=== PATIENT | male | born 1940 | race Caucasian/White ===

== ENCOUNTER 2017-03-06 15:00 | Inpatient (IN) | payer OTHER ==
[~2017-03-06] VITALS: Ht 167.6 cm; Wt 94.0 kg
[2017-03-06 16:21] LABS: BASOPHILS % (AUTO) 0.3 % (0.0-5.0); HEMATOCRIT 37.7 % (42-54); LYMPHOCYTES % (AUTO) 21.7 % (21.0-51.0); MEAN CORPUSCULAR HEMOGLOBIN 34.1 pg (27.0-33.0); MEAN CORPUSCULAR HGB CONC 34.8 g/dL (32.0-36.0); MEAN CORPUSCULAR VOLUME 97.9 fL (79-99); MONOCYTES % (AUTO) 7.6 % (3.0-13.0); NEUTROPHILS % (AUTO) 67.4 % (40.0-77.0); PLATELET COUNT (AUTO) 252 K/uL (130-400); RED BLOOD CELL COUNT(AUTO) 3.85 MIL/uL (4.50-6.20); RED CELL DISTRIBUTION WIDTH 12.4 % (11.0-15.5); WHITE BLOOD COUNT (AUTO) 8.5 K/uL (4.8-10.8)
[2017-03-06 16:35] LABS: INR 0.92 (0.85-1.15); PARTIAL THROMBOPLASTIN TIME 23.9 SEC (26.3-35.5); PROTHROMBIN TIME 9.7 SEC (9.6-11.6)
[2017-03-06 16:38] VITALS: BP 143/76
[2017-03-06 16:42] LABS: CREATININE 1.4 mg/dL (0.5-1.5); POTASSIUM 4.5 mmol/L (3.5-5.1)
[2017-03-06 16:42] LABS: APPEARANCE,URINE Clear (CLEAR); BILIRUBIN,URINE Negative (NEGATIVE); COLOR,URINE Yellow (YELLOW); GLUCOSE, URINE (UA) Negative (NEGATIVE); KETONES,URINE Negative (NEGATIVE); LEUKOCYTE ESTERASE ,URINE Negative (NEGATIVE); NITRATE,URINE Negative (NEGATIVE); OCCULT BLOOD,URINE Negative (NEGATIVE); PROTEIN,URINE Negative (NEGATIVE); UROBILINOGEN,URINE 0.2 mg/dL (0.2-1.0)
[2017-03-06] MEDS ORDERED: ATOR-2 PO (17:08)
[2017-03-06] MEDS ORDERED: METO25TA6 PO (17:08)
[2017-03-06] MEDS ORDERED: OMEP20TA25 PO (17:08)
[2017-03-06] MEDS ORDERED: FOLI1TAB61 PO (17:08)
[2017-03-06] MEDS ORDERED: ASPI-555 PO (17:08)
[2017-03-06] MEDS ORDERED: CLOP75TA14 PO (17:08)
[2017-03-09] VITALS (24 sets, daily range): BP systolic 137–168; BP diastolic 71–93
[2017-03-09] MEDS: CEFAZOLIN SODIUM 1 GM VIAL IVP SCH ×3 (06:00→15:47)
[2017-03-09] MEDS ORDERED: CEFAZOLIN SODIUM 1 GM VIAL ONE ×2 (06:56→11:17)
[2017-03-09] MEDS ORDERED: BUPIVACAINE/EPI/PF 0.25% 30ML VIAL IJ ONE ×2 (06:56→11:17)
[2017-03-09] MEDS ORDERED: TRANEXAMIC ACID 1000MG/10ML IV ONE ×2 (06:56→11:18)
[2017-03-09] MEDS ORDERED: LACTATED RINGERS 1000ML 1,000 ML IV ONE (07:06)
[2017-03-09] MEDS ORDERED: LIDOCAINE PF 2% 5ML ABBOJECT ONE ×2 (07:19→07:26)
[2017-03-09] MEDS ORDERED: MIDAZOLAM HCL 1 MG/ML 2ML VIAL ONE (07:19)
[2017-03-09] MEDS ORDERED: PROPOFOL 10 MG/ML 20ML VIAL IV ONE (07:19)
[2017-03-09] MEDS ORDERED: DEXAMETHASONE SOD PHOSPHATE 10MG/ML 1ML VIAL ONE (07:19)
[2017-03-09] MEDS ORDERED: ONDANSETRON HCL 4 MG/2 ML VIAL ONE (07:19)
[2017-03-09] MEDS ORDERED: GLYCOPYRROLATE 0.2 MG/ML 5 ML VIAL ONE (07:19)
[2017-03-09] MEDS ORDERED: FENTANYL CITRATE PF 50 MCG/1 ML 2ML VIAL ONE ×4 (07:20→10:20)
[2017-03-09] MEDS ORDERED: ROCURONIUM BROMIDE 10MG/1ML 5ML VL ONE (07:25)
[2017-03-09] MEDS ORDERED: ROPIVACAINE 0.5% 5MG/ML 30ML IJ ONE (07:32)
[2017-03-09] MEDS ORDERED: CALDOLOR 800MG+NS 250ML 250 ML IV ONE (08:34)
[2017-03-09] MEDS ORDERED: CEFAZOLIN SODIUM 1 GM VIAL IRRIG ONE (09:04)
[2017-03-09] MEDS ORDERED: POTASSIUM CHLORIDE 10% ELIXIR 20 MEQ/15 ML UDCUP PO PRN (10:15)
[2017-03-09] MEDS ORDERED: LIDOCAINE HCL-MPF 1% 2ML VIAL IVP PRN (10:15)
[2017-03-09] MEDS ORDERED: DIPHENHYDRAMINE HCL 25 MG CAPSULE PO PRN (10:15)
[2017-03-09] MEDS: ACETAMINOPHEN 325 MG TAB PO SCH ×4 (10:15→21:51)
[2017-03-09] MEDS ORDERED: OXYCODONE HCL 5 MG TAB PO PRN (10:15)
[2017-03-09] MEDS ORDERED: DiphenhydrAMINE HCL 50 MG/ML VIAL IVP PRN (10:15)
[2017-03-09] MEDS ORDERED: TRAMADOL HCL 50 MG TABLET PO PRN (10:15)
[2017-03-09] MEDS ORDERED: FERROUS FUMARATE 324 MG TABLET PO PRN (10:15)
[2017-03-09] MEDS ORDERED: PROMETHAZINE HCL 25 MG/ML 1ML AMPULE IM PRN (10:15)
[2017-03-09] MEDS ORDERED: POTASSIUM CHLORIDE 20MEQ/100ML 100 ML IV PRN (10:15)
[2017-03-09] MEDS ORDERED: KETOROLAC TROMETHAMINE 15MG/ML IV PRN (10:15)
[2017-03-09] MEDS: PSYLLIUM SEED 1 EACH PACKET PO SCH (12:38)
[2017-03-09] MEDS: SODIUM CHLORIDE 0.9% 1000ML 1,000 ML IV SCH (12:38)
[2017-03-09] MEDS: OXYCODONE HCL 5 MG TAB PO PRN (14:37)
[2017-03-09] MEDS ORDERED: WATER FOR INJECTION,STERILE 20 ML VIAL IJ SCH (15:15)
[2017-03-09] MEDS ORDERED: CEFAZOLIN 2GM / 50 ML 50 ML IV SCH (15:15)
[2017-03-09] MEDS: CELECOXIB 200 MG CAP PO SCH (21:48)
[2017-03-09] MEDS: ATORVASTATIN CALCIUM 40 MG TABLET PO SCH (21:48)
[2017-03-09] MEDS: PREGABALIN 25 MG CAP PO SCH (21:49)
[2017-03-09] MEDS: METOPROLOL TARTRATE 25 MG TAB PO SCH (21:49)
[2017-03-10] VITALS: BP 121/72
[2017-03-10] MEDS: CEFAZOLIN SODIUM 1 GM VIAL IVP SCH
[2017-03-10] MEDS: OXYCODONE HCL 5 MG TAB PO PRN ×3 (03:11→15:31)
[2017-03-10 04:00] VITALS: BP 131/84
[2017-03-10 04:44] LABS: HEMATOCRIT 29.9 % (42-54); MEAN CORPUSCULAR HEMOGLOBIN 34.7 pg (27.0-33.0); MEAN CORPUSCULAR HGB CONC 35.9 g/dL (32.0-36.0); MEAN CORPUSCULAR VOLUME 96.9 fL (79-99); PLATELET COUNT (AUTO) 206 K/uL (130-400); RED BLOOD CELL COUNT(AUTO) 3.09 MIL/uL (4.50-6.20); RED CELL DISTRIBUTION WIDTH 12.2 % (11.0-15.5); WHITE BLOOD COUNT (AUTO) 13.8 K/uL (4.8-10.8)
[2017-03-10 04:50] LABS: CREATININE 1.3 mg/dL (0.5-1.5)
[2017-03-10] MEDS: ACETAMINOPHEN 325 MG TAB PO SCH ×4 (04:59→21:05)
[2017-03-10] MEDS: CALCIUM CARBONATE 500 MG TABLET PO PRN ×2 (05:41→21:01)
[2017-03-10] MEDS: SODIUM CHLORIDE 0.9% 1000ML 1,000 ML IV SCH ×2 (06:13)
[2017-03-10 07:55] VITALS: BP 128/79
[2017-03-10] MEDS ORDERED: ASPIRIN 81 MG EC TAB PO SCH (09:00)
[2017-03-10] MEDS: POLYETHYLENE GLYCOL 3350 17 GM POWD.PACK PO SCH (09:29)
[2017-03-10] MEDS: PREGABALIN 25 MG CAP PO SCH ×2 (09:30→21:01)
[2017-03-10] MEDS: CELECOXIB 200 MG CAP PO SCH ×2 (09:32→21:01)
[2017-03-10] MEDS: PANTOPRAZOLE SODIUM 40 MG TABLET.DR PO SCH (09:32)
[2017-03-10] MEDS: CLOPIDOGREL BISULFATE 75 MG TAB PO SCH (09:32)
[2017-03-10] MEDS: METOPROLOL TARTRATE 25 MG TAB PO SCH ×2 (09:32→21:01)
[2017-03-10] MEDS: VITAMIN B COMPLEX 1 CAPSULE PO SCH (09:32)
[2017-03-10] MEDS: TAMSULOSIN HCL 0.4 MG CAP.ER.24H PO SCH (09:32)
[2017-03-10 11:40] VITALS: BP 132/74
[2017-03-10] MEDS: PSYLLIUM SEED 1 EACH PACKET PO SCH (11:59)
[2017-03-10] MEDS ORDERED: ASPIRIN 325 MG TABLET PO ONE (12:38)
[2017-03-10] MEDS: ASPIRIN 325 MG TABLET PO SCH (12:43)
[2017-03-10] MEDS ORDERED: ASPIRIN 325 MG TABLET PO SCH (12:45)
[2017-03-10 16:49] VITALS: BP 142/80
[2017-03-10 20:00] VITALS: BP 137/75
[2017-03-10] MEDS: ATORVASTATIN CALCIUM 40 MG TABLET PO SCH (21:01)
[2017-03-10] MEDS: TEMAZEPAM 15 MG CAPSULE PO PRN (21:01)
[2017-03-11] VITALS (7 sets, daily range): BP systolic 126–158; BP diastolic 65–88
[2017-03-11 04:38] LABS: HEMATOCRIT 27.2 % (42-54); MEAN CORPUSCULAR HEMOGLOBIN 34.2 pg (27.0-33.0); MEAN CORPUSCULAR HGB CONC 35.3 g/dL (32.0-36.0); MEAN CORPUSCULAR VOLUME 96.8 fL (79-99); PLATELET COUNT (AUTO) 178 K/uL (130-400); RED BLOOD CELL COUNT(AUTO) 2.81 MIL/uL (4.50-6.20); RED CELL DISTRIBUTION WIDTH 12.1 % (11.0-15.5); WHITE BLOOD COUNT (AUTO) 9.2 K/uL (4.8-10.8)
[2017-03-11] MEDS: ACETAMINOPHEN 325 MG TAB PO SCH ×4 (04:47→21:25)
[2017-03-11] MEDS: PANTOPRAZOLE SODIUM 40 MG TABLET.DR PO SCH (04:48)
[2017-03-11 04:49] LABS: CREATININE 1.3 mg/dL (0.5-1.5); POTASSIUM 3.5 mmol/L (3.5-5.1)
[2017-03-11] MEDS: CELECOXIB 200 MG CAP PO SCH ×2 (08:54→21:14)
[2017-03-11] MEDS: PREGABALIN 25 MG CAP PO SCH ×2 (08:54→21:22)
[2017-03-11] MEDS: ASPIRIN 325 MG TABLET PO SCH (08:54)
[2017-03-11] MEDS: CLOPIDOGREL BISULFATE 75 MG TAB PO SCH (08:54)
[2017-03-11] MEDS: VITAMIN B COMPLEX 1 CAPSULE PO SCH (08:55)
[2017-03-11] MEDS: POLYETHYLENE GLYCOL 3350 17 GM POWD.PACK PO SCH (08:55)
[2017-03-11] MEDS: TAMSULOSIN HCL 0.4 MG CAP.ER.24H PO SCH (08:55)
[2017-03-11] MEDS: METOPROLOL TARTRATE 25 MG TAB PO SCH ×2 (08:55→21:14)
[2017-03-11] MEDS: POTASSIUM CHLORIDE 20 MEQ ERTAB PO PRN ×2 (08:55→08:56)
[2017-03-11] MEDS: OXYCODONE HCL 5 MG TAB PO PRN ×3 (09:00→18:20)
[2017-03-11] MEDS ORDERED: HYDR-309 PO (09:53)
[2017-03-11] MEDS ORDERED: BISACODYL 5 MG TABLET.DR PO PRN ×2 (10:15→12:30)
[2017-03-11] MEDS ORDERED: BISACODYL 10 MG SUPP.RECT RC PRN (12:27)
[2017-03-11] MEDS: PSYLLIUM SEED 1 EACH PACKET PO SCH (12:53)
[2017-03-11] MEDS: TEMAZEPAM 15 MG CAPSULE PO PRN (21:14)
[2017-03-11] MEDS: ATORVASTATIN CALCIUM 40 MG TABLET PO SCH (21:14)
[2017-03-12] MEDS: PANTOPRAZOLE SODIUM 40 MG TABLET.DR PO SCH (03:55)
[2017-03-12] MEDS: ACETAMINOPHEN 325 MG TAB PO SCH ×3 (03:56→15:46)
[2017-03-12 04:00] VITALS: BP 129/75
[2017-03-12 05:06] LABS: HEMATOCRIT 25.7 % (42-54); MEAN CORPUSCULAR HEMOGLOBIN 36.7 pg (27.0-33.0); MEAN CORPUSCULAR HGB CONC 37.6 g/dL (32.0-36.0); MEAN CORPUSCULAR VOLUME 97.5 fL (79-99); PLATELET COUNT (AUTO) 186 K/uL (130-400); RED BLOOD CELL COUNT(AUTO) 2.63 MIL/uL (4.50-6.20); RED CELL DISTRIBUTION WIDTH 12.3 % (11.0-15.5); WHITE BLOOD COUNT (AUTO) 9.8 K/uL (4.8-10.8)
[2017-03-12 05:18] LABS: CREATININE 1.4 mg/dL (0.5-1.5); POTASSIUM 3.7 mmol/L (3.5-5.1)
[2017-03-12 07:31] VITALS: BP 138/80
[2017-03-12] MEDS: PREGABALIN 25 MG CAP PO SCH (10:26)
[2017-03-12] MEDS: POLYETHYLENE GLYCOL 3350 17 GM POWD.PACK PO SCH (10:26)
[2017-03-12] MEDS: VITAMIN B COMPLEX 1 CAPSULE PO SCH (10:26)
[2017-03-12] MEDS: OXYCODONE HCL 5 MG TAB PO PRN ×2 (10:27→15:47)
[2017-03-12] MEDS: CLOPIDOGREL BISULFATE 75 MG TAB PO SCH (10:27)
[2017-03-12] MEDS: CELECOXIB 200 MG CAP PO SCH (10:27)
[2017-03-12] MEDS: METOPROLOL TARTRATE 25 MG TAB PO SCH (10:27)
[2017-03-12] MEDS: ASPIRIN 325 MG TABLET PO SCH (10:31)
[2017-03-12] MEDS: TAMSULOSIN HCL 0.4 MG CAP.ER.24H PO SCH (10:32)
[2017-03-12 11:30] VITALS: BP 145/84
[2017-03-12] MEDS: PSYLLIUM SEED 1 EACH PACKET PO SCH (12:05)
[2017-03-12 16:26] VITALS: BP 133/78
[2017-06-12] MEDS ORDERED: CLOP75TA14 PO (10:30)
[2017-06-12] MEDS ORDERED: METO50TA18 PO (10:30)
[2017-06-12] MEDS ORDERED: FOLI0.8T41 PO (10:30)
== END 2017-03-12 18:35 | disposition home health service (06) | DRG 470 ==
LOC: DAHIP 03-09 06:16 → 4AH 03-09 11:46
PROVIDERS: ADMIT Orthopaedic Surgery; ATTEND Orthopaedic Surgery
PROC: 0SRD0J9 Replacement of Left Knee Joint with Synthetic Substitute, Cemented, Open Approach (ICD-10-PCS; principal; 2017-03-09 08:25)
DX: M17.12 Unilateral primary osteoarthritis, left knee (principal); E78.5 Hyperlipidemia, unspecified; I10 Essential (primary) hypertension; G89.29 Other chronic pain; Z90.49 Acquired absence of other specified parts of digestive tract; Z98.42 Cataract extraction status, left eye; Z98.41 Cataract extraction status, right eye; Z80.3 Family history of malignant neoplasm of breast; Z80.1 Family history of malignant neoplasm of trachea, bronchus and lung
CPT/HCPCS: 36415; 80048; 81003; 85025; 85027; 85610; 85730; 88305; 88311; A4218; C1713; J0690; J1100; J1741; J2001; J2250; J2405; J2704; J2795; J3010; J3490; J7030; J7120

== ENCOUNTER → 2017-05-25 | Outpatient (CLI) | payer OTHER ==
[~2017-05-25] VITALS: Ht 170.2 cm; Wt 91.6 kg
[~2017-05-25] MED LIST: ASPI-1012 PO; ASPI-555 PO; ATOR-2 PO; CLOP75TA14 PO; FISH1CAP49 PO; FOLI0.8T41 PO; FOLI1TAB61 PO; HYDR-309 PO; METO25TA6 PO; METO50TA18 PO; OMEP20CA10 PO; OMEP20TA25 PO; REGADENOSON 0.4 MG/5 ML PF SYG IVP SCH; RENAL MULTIVITAMIN PO
== END | disposition home or self-care (01) ==
LOC: SHCH 11:04
PROVIDERS: ATTEND Internal Medicine Cardiovascular Disease
DX: I20.9 Angina pectoris, unspecified (principal)
CPT/HCPCS: 78452; 93017; 96374; A9500 ×2; J2785

== ENCOUNTER 2017-05-29 11:00 | Inpatient (IN) | payer OTHER ==
[~2017-05-29] VITALS: Ht 168.9 cm; Wt 89.5 kg
[~2017-05-29 11:00] MED LIST changes: -ASPI-1012 PO; -FISH1CAP49 PO; -FOLI0.8T41 PO; -FOLI1TAB61 PO; -HYDR-309 PO; -METO25TA6 PO; -METO50TA18 PO; -OMEP20CA10 PO; -OMEP20TA25 PO; -REGADENOSON 0.4 MG/5 ML PF SYG IVP SCH; -RENAL MULTIVITAMIN PO
[2017-06-12] MEDS ORDERED: OMEP20CA10 PO (10:30)
[2017-06-12] MEDS ORDERED: FISH1CAP49 PO (10:30)
[2017-06-23 15:39] VITALS: BP 131/65
[2017-06-23 15:54] LABS: BASOPHILS % (AUTO) 0.7 % (0.0-5.0); EOSINOPHILS % (AUTO) 4.9 % (0.0-8.0); HEMATOCRIT 36.8 % (42-54); LYMPHOCYTES % (AUTO) 30.3 % (21.0-51.0); MEAN CORPUSCULAR HEMOGLOBIN 32.6 pg (27.0-33.0); MEAN CORPUSCULAR HGB CONC 34.5 g/dL (32.0-36.0); MEAN CORPUSCULAR VOLUME 94.6 fL (79-99); MONOCYTES % (AUTO) 11.6 % (3.0-13.0); NEUTROPHILS % (AUTO) 52.5 % (40.0-77.0); PLATELET COUNT (AUTO) 260 K/uL (130-400); RED BLOOD CELL COUNT(AUTO) 3.89 MIL/uL (4.50-6.20); RED CELL DISTRIBUTION WIDTH 13.2 % (11.0-15.5); WHITE BLOOD COUNT (AUTO) 6.4 K/uL (4.8-10.8)
[2017-06-23] MEDS ORDERED: RENAL MULTIVITAMIN PO (16:29)
[2017-06-23] MEDS ORDERED: METO50TA18 PO (16:32)
[2017-06-24] VITALS (25 sets, daily range): BP systolic 108–175; BP diastolic 60–94
[2017-06-24] MEDS: CEFAZOLIN SODIUM 1 GM VIAL IVP SCH ×3 (08:00→17:38)
[2017-06-24] MEDS ORDERED: TRANEXAMIC ACID 1000MG/10ML IV ONE (08:07)
[2017-06-24] MEDS ORDERED: LACTATED RINGERS 1000ML 1,000 ML IV ONE (08:07)
[2017-06-24] MEDS ORDERED: CEFAZOLIN SODIUM 1 GM VIAL ONE (08:07)
[2017-06-24] MEDS ORDERED: ACETAMINOPHEN EXTRA STRENGTH 500 MG TABLET ONE (08:26)
[2017-06-24] MEDS ORDERED: OXYCODONE HCL 10 MG TAB.SR.12H PO ONE (08:27)
[2017-06-24] MEDS ORDERED: KETOROLAC TROMETHAMINE 15MG/ML ONE (08:27)
[2017-06-24] MEDS ORDERED: CELECOXIB 200 MG CAP ONE (08:27)
[2017-06-24] MEDS: BUPIVACAINE/EPI/PF 0.25% 30ML VIAL IJ SCH ×2 (08:30→12:15)
[2017-06-24] MEDS ORDERED: LIDOCAINE PF 2% 5ML ABBOJECT ONE (09:08)
[2017-06-24] MEDS ORDERED: ONDANSETRON HCL 4 MG/2 ML VIAL ONE (09:08)
[2017-06-24] MEDS ORDERED: NEOSTIGMINE 5MG/5ML SYR IV ONE (09:08)
[2017-06-24] MEDS ORDERED: DEXAMETHASONE SOD PHOSPHATE 10MG/ML 1ML VIAL ONE (09:08)
[2017-06-24] MEDS ORDERED: GLYCOPYRROLATE 0.2 MG/ML 5 ML VIAL ONE (09:08)
[2017-06-24] MEDS ORDERED: FENTANYL CITRATE PF 50 MCG/1 ML 2ML VIAL ONE ×2 (09:09→10:48)
[2017-06-24] MEDS ORDERED: PROPOFOL 10 MG/ML 20ML VIAL IV ONE (09:09)
[2017-06-24] MEDS ORDERED: MIDAZOLAM HCL 1 MG/ML 2ML VIAL ONE (09:09)
[2017-06-24] MEDS ORDERED: VECURONIUM BROMIDE 10 MG ML IV ONE (09:15)
[2017-06-24] MEDS ORDERED: ROPIVACAINE 0.5% 5MG/ML 30ML IJ ONE (09:15)
[2017-06-24] MEDS ORDERED: EPHEDRINE SULFATE 50 MG/ML AMPULE ONE (10:41)
[2017-06-24] MEDS ORDERED: METOPROLOL TARTRATE 1 MG/ML 5ML VIAL IV ONE (11:13)
[2017-06-24] MEDS ORDERED: POTASSIUM CHLORIDE 10% ELIXIR 20 MEQ/15 ML UDCUP PO PRN (12:30)
[2017-06-24] MEDS: ACETAMINOPHEN EXTRA STRENGTH 500 MG TABLET PO SCH ×2 (12:30→19:31)
[2017-06-24] MEDS ORDERED: POTASSIUM CHLORIDE 20 MEQ ERTAB PO PRN (12:30)
[2017-06-24] MEDS ORDERED: ONDANSETRON HCL 4 MG/2 ML VIAL IVP PRN (12:30)
[2017-06-24] MEDS ORDERED: TRAMADOL HCL 50 MG TABLET PO PRN (12:30)
[2017-06-24] MEDS ORDERED: DiphenhydrAMINE HCL 50 MG/ML VIAL IVP PRN (12:30)
[2017-06-24] MEDS ORDERED: CALCIUM CARBONATE 500 MG TABLET PO PRN (12:30)
[2017-06-24] MEDS ORDERED: LIDOCAINE HCL-MPF 1% 2ML VIAL IVP PRN (12:30)
[2017-06-24] MEDS ORDERED: TEMAZEPAM 15 MG CAPSULE PO PRN (12:30)
[2017-06-24] MEDS ORDERED: FERROUS FUMARATE 324 MG TABLET PO PRN (12:30)
[2017-06-24] MEDS ORDERED: POTASSIUM CHLORIDE 20MEQ/100ML 100 ML IV PRN (12:30)
[2017-06-24] MEDS ORDERED: MEPERIDINE-PF 25 MG/ML SYG ONE ×2 (13:21→13:30)
[2017-06-24] MEDS: SODIUM CHLORIDE 0.9% 1000ML 1,000 ML IV SCH ×2 (15:17→22:16)
[2017-06-24] MEDS: KETOROLAC TROMETHAMINE 15MG/ML IV PRN ×2 (15:18→23:45)
[2017-06-24] MEDS ORDERED: CEFAZOLIN 2GM / 50 ML 50 ML IV SCH (17:30)
[2017-06-24] MEDS: OXYCODONE HCL 5 MG TAB PO PRN (19:31)
[2017-06-24] MEDS: CELECOXIB 200 MG CAP PO SCH (20:42)
[2017-06-24] MEDS: ASPIRIN 325 MG TABLET PO SCH (20:42)
[2017-06-24] MEDS: ATORVASTATIN CALCIUM 40 MG TABLET PO SCH (20:42)
[2017-06-24] MEDS: METOPROLOL TARTRATE 50 MG TAB PO SCH (20:42)
[2017-06-24] MEDS: PREGABALIN 25 MG CAP PO SCH (20:42)
[2017-06-24] MEDS: FAMOTIDINE 20MG TAB 20 MG TAB PO SCH (20:43)
[2017-06-25] VITALS: BP 148/86
[2017-06-25] MEDS: CEFAZOLIN SODIUM 1 GM VIAL IVP SCH (00:50)
[2017-06-25] MEDS: OXYCODONE HCL 5 MG TAB PO PRN ×5 (01:21→18:32)
[2017-06-25] MEDS: ACETAMINOPHEN EXTRA STRENGTH 500 MG TABLET PO SCH ×3 (03:50→19:46)
[2017-06-25 04:00] VITALS: BP 144/77
[2017-06-25 05:10] LABS: HEMATOCRIT 29.4 % (42-54); MEAN CORPUSCULAR HEMOGLOBIN 32.3 pg (27.0-33.0); MEAN CORPUSCULAR HGB CONC 34.2 g/dL (32.0-36.0); MEAN CORPUSCULAR VOLUME 94.5 fL (79-99); PLATELET COUNT (AUTO) 226 K/uL (130-400); RED BLOOD CELL COUNT(AUTO) 3.11 MIL/uL (4.50-6.20); RED CELL DISTRIBUTION WIDTH 13.4 % (11.0-15.5); WHITE BLOOD COUNT (AUTO) 12.7 K/uL (4.8-10.8)
[2017-06-25 05:21] LABS: CREATININE 1.5 mg/dL (0.5-1.5); POTASSIUM 4.6 mmol/L (3.5-5.1)
[2017-06-25 07:35] VITALS: BP 144/75
[2017-06-25] MEDS: FAMOTIDINE 20MG TAB 20 MG TAB PO SCH ×2 (08:13→19:46)
[2017-06-25] MEDS: POLYETHYLENE GLYCOL 3350 17 GM POWD.PACK PO SCH (08:13)
[2017-06-25] MEDS: CLOPIDOGREL BISULFATE 75 MG TAB PO SCH (08:13)
[2017-06-25] MEDS: METOPROLOL TARTRATE 50 MG TAB PO SCH ×2 (08:13→19:46)
[2017-06-25] MEDS: ASPIRIN 325 MG TABLET PO SCH ×2 (08:13→19:45)
[2017-06-25] MEDS: FOLIC ACID/VITAMIN B COMP W-C 1 MG CAPSULE PO SCH (08:13)
[2017-06-25] MEDS: TAMSULOSIN HCL 0.4 MG CAP.ER.24H PO SCH (08:13)
[2017-06-25] MEDS: FISH OIL 1000 MG/CAP PO SCH (08:13)
[2017-06-25] MEDS: PANTOPRAZOLE SODIUM 40 MG TABLET.DR PO SCH (08:13)
[2017-06-25] MEDS: CELECOXIB 200 MG CAP PO SCH ×2 (08:14→19:46)
[2017-06-25] MEDS: PREGABALIN 25 MG CAP PO SCH ×2 (08:14→19:45)
[2017-06-25] MEDS: SODIUM CHLORIDE 0.9% 1000ML 1,000 ML IV SCH (08:26)
[2017-06-25 11:46] VITALS: BP 116/57
[2017-06-25 16:00] VITALS: BP 116/58
[2017-06-25] MEDS: ATORVASTATIN CALCIUM 40 MG TABLET PO SCH (19:46)
[2017-06-25 19:59] VITALS: BP 137/67
[2017-06-26 00:06] VITALS: BP 127/63
[2017-06-26] MEDS: ACETAMINOPHEN EXTRA STRENGTH 500 MG TABLET PO SCH ×2 (04:00→12:02)
[2017-06-26 04:07] VITALS: BP 122/64
[2017-06-26 07:37] VITALS: BP 124/69
[2017-06-26] MEDS: TAMSULOSIN HCL 0.4 MG CAP.ER.24H PO SCH (08:12)
[2017-06-26] MEDS: METOPROLOL TARTRATE 50 MG TAB PO SCH (08:12)
[2017-06-26] MEDS: OXYCODONE HCL 5 MG TAB PO PRN ×3 (08:12→12:23)
[2017-06-26] MEDS: ASPIRIN 325 MG TABLET PO SCH (08:12)
[2017-06-26] MEDS: FOLIC ACID/VITAMIN B COMP W-C 1 MG CAPSULE PO SCH (08:13)
[2017-06-26] MEDS: CLOPIDOGREL BISULFATE 75 MG TAB PO SCH (08:13)
[2017-06-26] MEDS: FAMOTIDINE 20MG TAB 20 MG TAB PO SCH (08:13)
[2017-06-26] MEDS: POLYETHYLENE GLYCOL 3350 17 GM POWD.PACK PO SCH (08:13)
[2017-06-26] MEDS: PREGABALIN 25 MG CAP PO SCH (08:13)
[2017-06-26] MEDS: CELECOXIB 200 MG CAP PO SCH (08:13)
[2017-06-26] MEDS: PANTOPRAZOLE SODIUM 40 MG TABLET.DR PO SCH (08:13)
[2017-06-26] MEDS: FISH OIL 1000 MG/CAP PO SCH (08:13)
[2017-06-26 11:16] VITALS: BP 141/75
[2017-06-26] MEDS ORDERED: BISACODYL 10 MG SUPP.RECT RC ONE (15:27)
[2017-06-26] MEDS ORDERED: ASPI-1012 PO (15:34)
[2017-06-26] MEDS ORDERED: HYDR-309 PO (15:34)
[2017-06-27] MEDS ORDERED: BISACODYL 10 MG SUPP.RECT RC PRN (12:30)
== END 2017-06-26 17:00 | disposition home health service (06) | DRG 470 ==
LOC: EDSTATUS 14:45 → DAHIP 06-24 07:15 → 4AH 06-24 13:46
PROVIDERS: ADMIT Orthopaedic Surgery; ATTEND Orthopaedic Surgery
PROC: 0SRC0J9 Replacement of Right Knee Joint with Synthetic Substitute, Cemented, Open Approach (ICD-10-PCS; principal; 2017-06-24 10:08)
DX: M17.11 Unilateral primary osteoarthritis, right knee (principal); E78.5 Hyperlipidemia, unspecified; I10 Essential (primary) hypertension; I25.10 Atherosclerotic heart disease of native coronary artery without angina pectoris; K21.9 Gastro-esophageal reflux disease without esophagitis; Z96.652 Presence of left artificial knee joint; Z98.42 Cataract extraction status, left eye; Z98.41 Cataract extraction status, right eye
CPT/HCPCS: 36415; 80048; 85025; 85027; 88305; 88311; 96374; A4218; A4344; J0690; J1100; J1885; J2001; J2175; J2250; J2405; J2704; J2710; J2795; J3010; J3490; J7030; J7120

== ENCOUNTER 2017-06-16 08:52 | Day surgery (SDC) | payer OTHER ==
[2017-06-12 10:02] VITALS: BP 138/70
[2017-06-12 10:12] LABS: APPEARANCE,URINE Clear (CLEAR); BILIRUBIN,URINE Negative (NEGATIVE); COLOR,URINE Yellow (YELLOW); GLUCOSE, URINE (UA) Negative (NEGATIVE); KETONES,URINE Negative (NEGATIVE); LEUKOCYTE ESTERASE ,URINE Negative (NEGATIVE); NITRATE,URINE Negative (NEGATIVE); OCCULT BLOOD,URINE Negative (NEGATIVE); PROTEIN,URINE Negative (NEGATIVE); UROBILINOGEN,URINE 0.2 mg/dL (0.2-1.0)
[2017-06-12 10:12] LABS: BASOPHILS % (AUTO) 0.4 % (0.0-5.0); EOSINOPHILS % (AUTO) 4.2 % (0.0-8.0); HEMATOCRIT 35.4 % (42-54); LYMPHOCYTES % (AUTO) 31.8 % (21.0-51.0); MEAN CORPUSCULAR HEMOGLOBIN 32.1 pg (27.0-33.0); MEAN CORPUSCULAR HGB CONC 34.1 g/dL (32.0-36.0); MONOCYTES % (AUTO) 7.6 % (3.0-13.0); PLATELET COUNT (AUTO) 285 K/uL (130-400); RED BLOOD CELL COUNT(AUTO) 3.77 MIL/uL (4.50-6.20); RED CELL DISTRIBUTION WIDTH 12.9 % (11.0-15.5); WHITE BLOOD COUNT (AUTO) 4.8 K/uL (4.8-10.8)
[2017-06-12 10:23] LABS: CREATININE 1.2 mg/dL (0.5-1.5); POTASSIUM 4.4 mmol/L (3.5-5.1)
[2017-06-12 10:44] LABS: INR 0.94 (0.85-1.15); PROTHROMBIN TIME 9.9 SEC (9.6-11.6)
[2017-06-16] VITALS (10 sets, daily range): BP systolic 131–163; BP diastolic 64–82
[~2017-06-16] VITALS: Ht 170.2 cm; Wt 91.9 kg
[~2017-06-16 08:52] MED LIST changes: +FISH1CAP49 PO; +FOLI0.8T41 PO; +METO50TA18 PO; +OMEP20CA10 PO; +SODIUM CHLORIDE 0.9% 500ML 500 ML IV SCH
[2017-06-16] MEDS ORDERED: SODIUM CHLORIDE 0.9% 1000ML 1,000 ML IV ONE (10:00)
[2017-06-16] MEDS ORDERED: MIDAZOLAM HCL 1 MG/ML 2ML VIAL ONE (10:34)
[2017-06-16] MEDS ORDERED: NITROGLYCERIN 5 MG/ML 10 ML VIAL IV ONE (10:34)
[2017-06-16] MEDS ORDERED: IOPAMIDOL-370 100 ML VIAL IV ONE (10:34)
[2017-06-16] MEDS ORDERED: HEPARIN SODIUM 1000UNIT/ML 10ML VIAL ONE (10:34)
[2017-06-16] MEDS ORDERED: SODIUM BICARB 50MEQ 50ML VIAL ONE (10:34)
[2017-06-16] MEDS ORDERED: LIDOCAINE HCL 1% 20 ML VIAL ONE (10:34)
[2017-06-16] MEDS ORDERED: ISOVUE-370 50ML VIAL IV ONE (10:34)
[2017-06-16] MEDS ORDERED: MEPERIDINE-PF 25 MG/ML SYG ONE (10:35)
[2017-06-16] MEDS ORDERED: SODIUM CHLORIDE 0.9% 1000ML 1,000 ML IV SCH (11:32)
[2017-06-16] MEDS ORDERED: ACETAMINOPHEN-CODEINE 300/30MG TAB PO PRN (11:45)
== END 2017-06-16 15:55 | disposition home or self-care (01) ==
LOC: DAH 08:52
PROVIDERS: ATTEND Internal Medicine Cardiovascular Disease
DX: I25.118 Atherosclerotic heart disease of native coronary artery with other forms of angina pectoris (principal); Z68.30 Body mass index [BMI] 30.0-30.9, adult; Z95.5 Presence of coronary angioplasty implant and graft; I10 Essential (primary) hypertension; E78.5 Hyperlipidemia, unspecified; K21.9 Gastro-esophageal reflux disease without esophagitis; Z79.899 Other long term (current) drug therapy; Z90.49 Acquired absence of other specified parts of digestive tract; Z98.890 Other specified postprocedural states; R06.00 Dyspnea, unspecified; Z79.01 Long term (current) use of anticoagulants; M19.90 Unspecified osteoarthritis, unspecified site
CPT/HCPCS: 36415; 71045; 80048; 81003; 85025; 85610; 85730; 93005; 93458; C1760; C1894; J1644; J3490 ×2; J7030; Q9967 ×2; J2175; J2250

== ENCOUNTER 2018-07-02 08:18 | Day surgery (SDC) | payer OTHER ==
[2018-07-01 15:59] VITALS: BP 139/70
[2018-07-02] VITALS (14 sets, daily range): BP systolic 129–163; BP diastolic 59–87
[~2018-07-02] VITALS: Ht 167.6 cm; Wt 94.3 kg
[~2018-07-02 08:18] MED LIST changes: -ATOR-2 PO; +BUPR150SR PO; +CEFAZOLIN SODIUM 1 GM VIAL IVP SCH; -FISH1CAP49 PO; -FOLI0.8T41 PO; +ROSU20TA30 PO; -SODIUM CHLORIDE 0.9% 500ML 500 ML IV SCH
[2018-07-02] MEDS ORDERED: LACTATED RINGERS 1000ML 1,000 ML IV ONE (10:15)
[2018-07-02] MEDS ORDERED: EPINEPHRINE 1 MG/ML 30ML VIAL IJ ONE (10:53)
[2018-07-02] MEDS ORDERED: SUCCINYLCHOLINE 200MG/10ML SYR ONE (10:58)
[2018-07-02] MEDS ORDERED: PROPOFOL 10 MG/ML 20ML VIAL IV ONE (10:58)
[2018-07-02] MEDS ORDERED: LIDOCAINE PF 2% 5ML ABBOJECT ONE (10:58)
[2018-07-02] MEDS ORDERED: ONDANSETRON HCL 4 MG/2 ML VIAL ONE (10:59)
[2018-07-02] MEDS ORDERED: GLYCOPYRROLATE 1 MG/5 ML SYRINGE ONE (10:59)
[2018-07-02] MEDS ORDERED: ROCURONIUM 10MG/1ML SYR 10 MG/ML ML ONE (10:59)
[2018-07-02] MEDS ORDERED: FENTANYL CITRATE PF 50 MCG/1 ML 2ML VIAL ONE (10:59)
[2018-07-02] MEDS ORDERED: NEOSTIGMINE 5MG/5ML SYR IV ONE (10:59)
[2018-07-02] MEDS ORDERED: MIDAZOLAM HCL 1 MG/ML 2ML VIAL ONE (10:59)
[2018-07-02] MEDS ORDERED: DEXAMETHASONE SOD PHOSPHATE 10MG/ML 1ML VIAL ONE (10:59)
[2018-07-02] MEDS ORDERED: EPHEDRINE SULFATE 50 MG/ML AMPULE ONE (11:58)
[2018-07-02] MEDS ORDERED: CEPH500B PO (14:04)
[2018-07-02] MEDS ORDERED: TYL3 PO (14:04)
== END 2018-07-02 15:40 | disposition home or self-care (01) ==
LOC: DAH 08:18
PROVIDERS: ATTEND Orthopaedic Surgery
DX: S43.492A Other sprain of left shoulder joint, initial encounter (principal); M75.102 Unspecified rotator cuff tear or rupture of left shoulder, not specified as traumatic; M75.42 Impingement syndrome of left shoulder; Z68.32 Body mass index [BMI] 32.0-32.9, adult; Z79.899 Other long term (current) drug therapy; I25.10 Atherosclerotic heart disease of native coronary artery without angina pectoris; I10 Essential (primary) hypertension; E78.5 Hyperlipidemia, unspecified; K21.9 Gastro-esophageal reflux disease without esophagitis; Z79.82 Long term (current) use of aspirin; M19.90 Unspecified osteoarthritis, unspecified site; G89.29 Other chronic pain; Z95.5 Presence of coronary angioplasty implant and graft; Z98.41 Cataract extraction status, right eye; Z98.42 Cataract extraction status, left eye
CPT/HCPCS: 29824; 29826; 29827; 64415; 87641; A4218; A4565; A4600; A4649 ×6; A4930 ×2; A6204; C1713 ×2; J0171; J0330; J0690; J1100; J2001; J2250; J2405; J2704; J2710; J3010; J3490 ×2; J7030; J7120

== ENCOUNTER 2020-05-30 06:30 | Day surgery (SDC) | payer OTHER ==
[2020-05-29 11:38] VITALS: BP 125/63
[~2020-05-30] VITALS: Ht 170.2 cm; Wt 93.6 kg
[2020-05-30] VITALS (16 sets, daily range): BP systolic 118–164; BP diastolic 60–85
[~2020-05-30 06:30] MED LIST changes: -ASPI-555 PO; +ASPI-556 PO; -BUPR150SR PO; -CEFAZOLIN SODIUM 1 GM VIAL IVP SCH; +CETI10TA57 PO; +CHOL100046 PO; -CLOP75TA14 PO; +DEXT1DRO OP; +FERS325 PO; +FOLI0.8T43 PO; +LEVO50 PO; +OLOP5DRO14 OP; -OMEP20CA10 PO; +OMEP20CA12 PO; +OXYB5TAB15 PO; -ROSU20TA30 PO; +ROSU20TA31 PO; +TRAZ-187 PO; +ZINC50TA64 PO
[2020-05-30] MEDS ORDERED: CEFAZOLIN SODIUM 1 GM VIAL ONE (06:42)
[2020-05-30] MEDS ORDERED: LACTATED RINGERS 1000ML 1,000 ML IV ONE (06:42)
[2020-05-30] MEDS ORDERED: EPINEPHRINE 1 MG/ML 30ML VIAL IJ ONE (07:15)
[2020-05-30] MEDS ORDERED: LIDOCAINE PF 100MG/5ML (2%) SYRINGE 5ML ONE (07:28)
[2020-05-30] MEDS ORDERED: PROPOFOL 10 MG/ML 20ML VIAL IV ONE (07:28)
[2020-05-30] MEDS ORDERED: ROCURONIUM 10MG/1ML SYR 10 MG/ML ML ONE (07:29)
[2020-05-30] MEDS ORDERED: ROPIVACAINE 0.5% 5MG/ML 30ML IJ ONE (07:32)
[2020-05-30] MEDS ORDERED: CEFAZOLIN SODIUM 1 GM VIAL IVP ONE (08:00)
[2020-05-30] MEDS ORDERED: DEXAMETHASONE SOD PHOSPHATE 10MG/ML 1ML VIAL ONE (08:39)
[2020-05-30] MEDS ORDERED: PHENYLEPHRINE HCL 10 MG/ML 1ML VIAL IV ONE (09:29)
[2020-05-30] MEDS ORDERED: 0.9%NACL 10ML VIAL ONE (09:30)
[2020-05-30] MEDS ORDERED: ONDANSETRON 4MG INJ ONE (10:22)
[2020-05-30] MEDS ORDERED: GLYCOPYRROLATE 1 MG/5 ML SYRINGE ONE (10:22)
[2020-05-30] MEDS ORDERED: NEOSTIGMINE 5MG/5ML SYR IV ONE (10:22)
[2020-05-30] MEDS ORDERED: HYDR-4060 PO (10:47)
[2020-05-30] MEDS ORDERED: IBUP-2070 PO (10:47)
[2020-05-30] MEDS ORDERED: CEPH500B PO (10:47)
== END 2020-05-30 12:35 | disposition home or self-care (01) ==
LOC: DAH 06:30
PROVIDERS: ATTEND Orthopaedic Surgery
DX: M75.121 Complete rotator cuff tear or rupture of right shoulder, not specified as traumatic (principal); Z20.822 Contact with and (suspected) exposure to COVID-19; M67.813 Other specified disorders of tendon, right shoulder; M75.41 Impingement syndrome of right shoulder; G89.29 Other chronic pain; M19.011 Primary osteoarthritis, right shoulder; I10 Essential (primary) hypertension; E78.5 Hyperlipidemia, unspecified; K21.9 Gastro-esophageal reflux disease without esophagitis; I25.10 Atherosclerotic heart disease of native coronary artery without angina pectoris; Z95.5 Presence of coronary angioplasty implant and graft; Z90.49 Acquired absence of other specified parts of digestive tract; Z98.42 Cataract extraction status, left eye; Z98.41 Cataract extraction status, right eye; Z96.651 Presence of right artificial knee joint; Z96.612 Presence of left artificial shoulder joint; Z72.89 Other problems related to lifestyle; Z79.82 Long term (current) use of aspirin; Z79.899 Other long term (current) drug therapy; Z98.890 Other specified postprocedural states
CPT/HCPCS: 29822; 29824; 29826; 29827; 64415; 76942; A4215; A4221; A4222; A4223; A4565; A4600; A4649 ×5; A4663; A4930; A5120; A6204; C1713 ×2; C9803; G0168; J0171; J0690; J1100; J2001; J2370; J2405; J2704; J2710; J2795; J3490; J7030 ×2; J7120; U0003

== ENCOUNTER → 2024-06-30 | Outpatient (CLI) | payer OTHER ==
[~2024-06-30] MED LIST changes: +CEPH500B PO; +HYDR-4060 PO; +IBUP-2070 PO; -OLOP5DRO14 OP; +OLOP5DRO26 OP; -OXYB5TAB15 PO; +OXYB5TAB20 PO; -ROSU20TA31 PO; +ROSU20TA98 PO
--- NOTE | 2024-06-30 10:17 | HMCIMG ---
Exam Type: MRI hip, no gadolinium, left Clinical Information: M25.552 Pain in left hip Comparison: None Technique: Examination is done with multiecho multiplanar sequences, with and without fat saturation. No gadolinium was used. Findings: The examination shows degenerative changes of the left hip including loss of articular cartilage. No fractures or dislocations are identified. There is no evidence of avascular necrosis. The visualized soft tissue structures of the hip are unremarkable as well. Visualized portions of the bladder appear unremarkable. Visualized pelvic viscera, muscular and subcutaneous compartments are preserved. Impression: Degenerative change of the left hip.
== END | disposition home or self-care (01) ==
LOC: RAH 08:57
PROVIDERS: ATTEND Orthopaedic Surgery
DX: M16.12 Unilateral primary osteoarthritis, left hip (principal); M25.552 Pain in left hip
CPT/HCPCS: 73721